=== PATIENT | female | born 1960 | race Caucasian/White ===

== ENCOUNTER 2017-04-12 21:56 | Emergency (ER) | payer SELFPAY ==
[2017-04-12] MEDS ORDERED: Nitroglycerin 2% Ointment 1 INCH/1 GM Packet ONE (22:27)
[2017-04-12 22:40] LABS: #Basophils 0.1 thou/uL (0.0-0.2); #Eosinphils 0.1 thou/uL (0.0-0.7); #Lymphocytes 4.6 thou/uL (1.20-3.40); #Monocytes 0.6 thou/uL (0.11-0.59); #Neutrophils 4.8 thou/uL (1.40-6.50); %Basophils 1.1 % (0.0-1.0); %Lymphocytes 45.4 % (21.0-51.0); %Monocytes 5.5 % (0.0-10.0); %Neutrophils 47.2 % (42.0-75.0); Hemoglobin 13.9 g/dL (12.0-16.0); Mean Corpuscular HGB CONC 33.2 g/dL (32.0-36.0); Mean Corpuscular Hemoglobin 31.8 pg (27.0-31.0); Mean Corpuscular Volume 95.9 fl (81.0-99.0); Mean Platelet Volume 10.3 fL (7.4-10.4); Platelet Count 244 thou/uL (130-400); RBC Distribution Width 12.3 % (11.5-14.5); Red Blood Cell (RBC) Count 4.38 mill/uL (4.20-5.40); White Blood Cell (WBC) Count 10.2 thou/uL (4.8-10.8)
--- NOTE | 2017-04-12 22:44 | RAD ---
SEMIUPRIGHT PORTABLE CHEST ONE VIEW: 04/12/17 HISTORY: 56-year-old female with chest pain and fluttering and racing in her chest with dizziness. Monitor leads overlie the chest. Heart size is within normal limits. The lungs are clear. IMPRESSION: No acute intrathoracic disease. POS: [facility]
[2017-04-12 22:46] LABS: ALT (SGPT) 24 U/L (8-55); AST (SGOT) 23 U/L (5-34); Albumin 4.3 g/dL (3.5-5.0); Alkaline Phosphatase 65 U/L (40-150); Anion Gap 16 mmol/L (10-20); BUN (Urea Nitrogen) 11 mg/dL (9.8-20.1); Bilirubin, Total 0.2 mg/dL (0.2-1.2); Calc. Creatinine Clearance 0 mL/min (70-130); Calcium 9.4 mg/dL (7.8-10.44); Carbon Dioxide 22 mmol/L (22-29); Chloride 105 mmol/L (98-107); Estimated GFR-MDRD 67; Glucose 105 mg/dL (70-105); Protein, Total 7.3 g/dL (6.0-8.3); Sodium 139 mmol/L (136-145)
[2017-04-12 22:49] LABS: CKMB 1.2 ng/mL (0-6.6); Troponin I Less than 0.010 ng/mL (< 0.028)
== END 2017-04-12 23:35 | disposition short-term general hospital (02) ==
LOC: NAV ERS 21:56
DX: R07.9 Chest pain, unspecified (principal); I10 Essential (primary) hypertension; E78.5 Hyperlipidemia, unspecified; J45.909 Unspecified asthma, uncomplicated; F32.9 Major depressive disorder, single episode, unspecified; F17.210 Nicotine dependence, cigarettes, uncomplicated; Z79.899 Other long term (current) drug therapy
CPT/HCPCS: 71010; 80053; 82553; 84484; 85025; 93005

== ENCOUNTER 2019-01-04 10:06 | Emergency (ER) | payer OTHER | END 2019-01-04 10:43 | disposition home or self-care (01) | LOC: NAV ERS 10:06 | DX: M79.641 Pain in right hand (principal); E78.5 Hyperlipidemia, unspecified; I10 Essential (primary) hypertension; J45.909 Unspecified asthma, uncomplicated; F32.9 Major depressive disorder, single episode, unspecified; F17.210 Nicotine dependence, cigarettes, uncomplicated; Z79.82 Long term (current) use of aspirin; Z79.899 Other long term (current) drug therapy | CPT/HCPCS: 99281 ==

== ENCOUNTER 2019-05-02 11:40 | Outpatient (CLI) | payer BC ==
--- NOTE | 2019-05-02 14:03 | RAD ---
CERVICAL SPINE 3 VIEWS: Date: 05/02/19 HISTORY: Cervical radiculopathy. FINDINGS: Moderate degenerative changes of the cervical spine. Disc narrowing and prominent hypertrophic spurri ng noted at C4-5, C5-6, and C6-7 levels. Slight anterolisthesis at C5-6. Posterior spondylosis at C6- 7. Facet hypertrophy. IMPRESSION: Moderate degenerative changes of the cervical spine as described. POS: [facility]
== END 2019-05-02 11:41 | disposition home or self-care (01) ==
LOC: NAV RAD 11:40
PROVIDERS: ATTEND Family Medicine
DX: M47.22 Other spondylosis with radiculopathy, cervical region (principal)
CPT/HCPCS: 72040

== ENCOUNTER 2019-07-09 02:07 | Emergency (ER) | payer BC ==
[2019-07-09] MEDS ORDERED: Ondansetron ODT 4 MG TAB ONE ×2 (02:40→02:47)
[2019-07-09] MEDS ORDERED: Ketorolac Tromethamine 60 MG/2 ML VIAL ONE (02:40)
[2019-07-09] MEDS ORDERED: Acetaminophen 500 MG TAB ONE (02:40)
== END 2019-07-09 03:02 | disposition home or self-care (01) ==
LOC: NAV ERS 02:07
DX: M54.9 Dorsalgia, unspecified (principal); R11.0 Nausea; E78.5 Hyperlipidemia, unspecified; E78.00 Pure hypercholesterolemia, unspecified; I10 Essential (primary) hypertension; J45.909 Unspecified asthma, uncomplicated; F32.9 Major depressive disorder, single episode, unspecified; Z87.891 Personal history of nicotine dependence
CPT/HCPCS: 96372; 99283; J1885; Q0162

== ENCOUNTER 2019-12-10 09:00 | Outpatient (CLI) | payer BC, OTHER ==
[~2019-12-10 09:00] MED LIST: Iopamidol 370 76% 100 ML VIAL ONE
--- NOTE | 2019-12-10 12:10 | CT ---
CT CHEST WITH CONTRAST: Date: 12/10/2019 INDICATION: Follow-up finding on chest x-ray. Correlation made to 2 view chest film dated 11/15/2019. A nodular density in the peripheral left lung was noted. FINDINGS: The lung morris confirm a solid rounded circumscribed nodule in the peripheral left upper lobe measur ing 1.0 cm diameter. Subtle area of nonspecific parenchymal opacity in the posterior aspect of the superior segment of the left lower lobe abutting the pleural surface posteriorly. This could represent focal infiltrate, ate lectasis, or chronic parenchymal change. Lung morris are otherwise clear. The mediastinum is unremarkable. Thoracic aorta is unremarkable. No adenopathy. Images through upper abdomen unremarkable. Osseous structures unremarkable. IMPRESSION: 1. 1.0 cm solid circumscribed nodule in the peripheral left upper lobe corresponding to finding seen on recent chest x-ray. Neoplasm is the diagnosis of exclusion. Recommend further evaluation with PET scan. 2. Nonspecific parenchymal opacity in the posterior aspect of the superior left lower lobe abutting the pleural surface. Considerations are as noted above. Recommend clinical correlation regarding clin ical findings of pneumonia. Short-term follow-up with repeat noncontrast chest CT in 3-4 months is milian ggested to confirm stability of this opacity if there are no clinical findings of pneumonia. POS: [facility]
== END 2019-12-10 09:01 | disposition home or self-care (01) ==
LOC: NAV CT 09:00
PROVIDERS: ATTEND Family Medicine
DX: R91.8 Other nonspecific abnormal finding of lung field (principal)
CPT/HCPCS: 71260; Q9967

== ENCOUNTER 2020-07-23 06:36 | Emergency (ER) | payer BC, SELFPAY ==
[2020-07-23] MEDS ORDERED: Ondansetron PF 4 MG/2 ML Vial ONE (07:43)
[2020-07-23] MEDS ORDERED: Morphine 4 MG/ML VIAL ONE (07:43)
[2020-07-23] MEDS ORDERED: Sodium Chloride 0.9% 1,000 ML ONE (07:43)
[2020-07-23 07:55] LABS: #Basophils 0.1 thou/uL (0.0-0.2); #Lymphocytes 1.9 thou/uL (1.20-3.40); #Monocytes 0.4 thou/uL (0.11-0.59); #Neutrophils 5.6 thou/uL (1.40-6.50); %Basophils 0.8 % (0.0-1.0); %Eosinophils 0.5 % (0.0-10.0); %Lymphocytes 23.3 % (21.0-51.0); %Monocytes 5.5 % (0.0-10.0); %Neutrophils 69.9 % (42.0-75.0); Hemoglobin 13.1 g/dL (12.0-16.0); Mean Corpuscular HGB CONC 33.9 g/dL (32.0-36.0); Mean Corpuscular Volume 94.5 fL (78.0-98.0); Mean Platelet Volume 9.5 fL (7.4-10.4); Platelet Count 415 thou/uL (130-400); RBC Distribution Width 12.6 % (11.5-14.5); Red Blood Cell (RBC) Count 4.09 mill/uL (4.20-5.40)
[2020-07-23 08:14] LABS: ALT (SGPT) 15 U/L (8-55); AST (SGOT) 17 U/L (5-34); Albumin 4.2 g/dL (3.5-5.0); Alkaline Phosphatase 95 U/L (40-110); Anion Gap 19 mmol/L (10-20); BUN (Urea Nitrogen) 11 mg/dL (9.8-20.1); Bilirubin, Total 0.2 mg/dL (0.2-1.2); Calc. Creatinine Clearance 0 mL/min (70-130); Calcium 9.6 mg/dL (7.8-10.44); Carbon Dioxide 23 mmol/L (22-29); Chloride 100 mmol/L (98-107); Globulin 2.6 g/dL (2.4-3.5); Glucose 115 mg/dL (70-105); Lipase 13 U/L (8-78); Potassium 3.6 mmol/L (3.5-5.1); Protein, Total 6.8 g/dL (6.0-8.3); Sodium 138 mmol/L (136-145)
--- NOTE | 2020-07-23 08:26 | RAD ---
EXAM: CHEST ONE VIEW HISTORY: Chest pain. Nausea. COMPARISON: 06/25/2020 FINDINGS: The cardiac silhouette and pulmonary vasculature are within normal limits. Nodular density overlying the lateral aspect lateral left midlung zone is partially obscured by overlying rib on today's exam but does appear to persist. Lungs are otherwise clear. Right glenohumeral prosthesis is present. Ches t is stable compared to prior exam. IMPRESSION: 1. No acute cardiopulmonary process. 2. Previously seen pulmonary nodule lateral aspect left midlung zone is again visualized but obscured by overlying posterior rib.
== END 2020-07-23 08:30 | disposition short-term general hospital (02) ==
LOC: NAV ERS 06:36
DX: R10.11 Right upper quadrant pain (principal); R10.13 Epigastric pain; E78.5 Hyperlipidemia, unspecified; I10 Essential (primary) hypertension; F17.210 Nicotine dependence, cigarettes, uncomplicated; Z79.899 Other long term (current) drug therapy
CPT/HCPCS: 71045; 80053; 83690; 84484; 85025; 94760; 96374; 96375; J2270; J2405; J7050

== ENCOUNTER 2023-09-01 16:17 | Emergency (ER) | payer OTHER ==
[2023-09-01] MEDS ORDERED: Acetaminophen 500 MG TAB ONE (17:01)
== END 2023-09-01 17:35 | disposition home or self-care (01) ==
LOC: NAV ERS 16:17
DX: S92.912A Unspecified fracture of left toe(s), initial encounter for closed fracture (principal); E78.00 Pure hypercholesterolemia, unspecified; I10 Essential (primary) hypertension; F17.210 Nicotine dependence, cigarettes, uncomplicated; W01.0XXA Fall on same level from slipping, tripping and stumbling without subsequent striking against object, initial encounter

== ENCOUNTER 2023-09-23 14:24 | Emergency (ER) | payer OTHER ==
[2023-09-23] MEDS ORDERED: Meclizine HCl 25 MG TAB ONE (15:42)
[2023-09-23] MEDS ORDERED: Lorazepam 0.5 MG TAB ONE (15:43)
== END 2023-09-23 16:45 | disposition home or self-care (01) ==
LOC: NAV ERS 14:24
DX: F41.9 Anxiety disorder, unspecified (principal); R42 Dizziness and giddiness; K21.9 Gastro-esophageal reflux disease without esophagitis; I10 Essential (primary) hypertension; F17.210 Nicotine dependence, cigarettes, uncomplicated; E78.00 Pure hypercholesterolemia, unspecified; Z79.899 Other long term (current) drug therapy
CPT/HCPCS: 99283

== ENCOUNTER 2024-03-14 15:56 | Emergency (ER) | payer OTHER, SELFPAY ==
[2024-03-14 16:47] LABS: #Eosinphils 0.1 thou/uL (0.0-0.7); #Lymphocytes 2.6 thou/uL (1.20-3.40); #Monocytes 0.5 thou/uL (0.11-0.59); #Neutrophils 5.1 thou/uL (1.40-6.50); %Basophils 0.4 % (0.0-1.0); %Eosinophils 0.8 % (0.0-10.0); %Lymphocytes 31.9 % (21.0-51.0); %Monocytes 5.9 % (0.0-10.0); %Neutrophils 61.1 % (42.0-75.0); Hematocrit 34.4 % (36.0-47.0); Hemoglobin 11.7 g/dL (12.0-16.0); Mean Corpuscular HGB CONC 34.1 g/dL (32.0-36.0); Mean Corpuscular Hemoglobin 32.1 pg (27.0-31.0); Mean Corpuscular Volume 94.1 fl (78.0-98.0); Mean Platelet Volume 9.4 fL (7.4-10.4); Platelet Count 225 10x3/uL (130-400); RBC Distribution Width 10.9 % (11.5-14.5); Red Blood Cell (RBC) Count 3.65 mill/uL (4.20-5.40); White Blood Cell (WBC) Count 8.3 10x3/uL (4.8-10.8)
[2024-03-14 16:49] LABS: Bilirubin Negative (Negative); Blood, Urine Negative (Negative); Clarity Clear (Clear); Glucose, Urine (Dipstick) Negative (Negative); Ketone, Urine Trace mg/dL (Negative); Leukocyte Negative (Negative); Nitrite Negative (Negative); Protein, Urine (Dipstick) Negative (Neg-Trace); Urobilinogen 0.2 mg/dL (Less than 2)
[2024-03-14 16:50] LABS: CAUTI Indications for Culture Alt mental st,lethar; RBC/HPF 0-3 HPF (0-3); Squamous Epithelial 0-3 HPF (0-3); Urine Culture Reflex No No
[2024-03-14 17:05] LABS: Troponin I Less than 0.010 ng/mL (< 0.028)
[2024-03-14 17:19] LABS: ALT (SGPT) 14 U/L (8-55); AST (SGOT) 18 U/L (5-34); Albumin 4.3 g/dL (3.4-4.8); Alkaline Phosphatase 60 U/L (40-110); Anion Gap 17 mmol/L (10-20); BUN (Urea Nitrogen) 23 mg/dL (9.8-20.1); Bilirubin, Total 0.2 mg/dL (0.2-1.2); Calc. Creatinine Clearance 0 mL/min (70-130); Calcium 9.5 mg/dL (7.8-10.44); Carbon Dioxide 27 mmol/L (23-31); Chloride 91 mmol/L (98-107); Estimated GFR 27; Glucose 113 mg/dL (80-115); Potassium 4.1 mmol/L (3.5-5.1); Protein, Total 7.3 g/dL (5.8-8.1); Sodium 131 mmol/L (136-145)
[2024-03-14] MEDS ORDERED: Sodium Chloride 0.9% 1,000 ML ONE (17:36)
== END 2024-03-14 18:33 | disposition home or self-care (01) ==
LOC: NAV ERS 15:56
DX: E86.0 Dehydration (principal); F17.210 Nicotine dependence, cigarettes, uncomplicated; I10 Essential (primary) hypertension; E78.00 Pure hypercholesterolemia, unspecified; J45.909 Unspecified asthma, uncomplicated; Z79.899 Other long term (current) drug therapy
CPT/HCPCS: 71045; 80053; 81001; 84443; 84484; 85025; 96360; J7030